=== PATIENT | female | born 1970 | race Caucasian/White ===

== ENCOUNTER 2018-06-18 01:37 | Outpatient (CLI) | payer OTHER, SELFPAY ==
--- NOTE | 2018-06-18 08:41 | DI.MRI_ITS ---
SYMPTOM/DIAGNOSIS: LT SHOULDER PAIN, WEAKNESS, SPRAIN, S43.92XD, LIMITED RANGE OF MOTION LEFT SHOULDER MRI: Routine noncontrast examination was performed. Comparison is made with 01/27/17. There is no evidence of a tendon tear. The rotator cuff muscles show normal signal and size. No significant muscular fatty atrophy is identified. The glenoid labrum is grossly unremarkable on this noncontrast examination. There are again seen post surgical changes with resection of the distal clavicle. Marrow signal is within normal limits. No evidence of an occult fracture or avascular necrosis. The glenohumeral articular cartilage appears well maintained. There is no significant joint effusion present. No soft tissue mass or focal fluid collection is appreciated. The ligaments appear grossly unremarkable. IMPRESSION: No acute abnormality. Post surgical changes seen at the acromioclavicular joint.
== END 2018-06-18 01:57 ==
PROVIDERS: PCP Nurse Practitioner Family; Visit Provider Student in an Organized Health Care Education/Training Program
DX: S43.92XD Sprain of unspecified parts of left shoulder girdle, subsequent encounter (principal); Z98.890 Other specified postprocedural states
CPT/HCPCS: 73221

== ENCOUNTER 2018-06-23 14:11 | Outpatient (CLI) | payer OTHER, SELFPAY ==
--- NOTE | 2018-06-23 14:08 | DI.RAD_ITS ---
SYMPTOMS/DIAGNOSIS: F/U LEFT SHOULDER PAIN LEFT SHOULDER: The bony structures are normally mineralized as visualized. The glenohumeral joint appears intact. Postsurgical changes with resection of the distal left clavicle are demonstrated. A tiny area of calcification is noted in the soft tissues adjacent to the greater tuberosity, raising the possibility of peritendinitis calcarea. Other than this finding, there has been no appreciable interval change when compared with images dating back to 12/15/16.
== END 2018-06-23 14:31 ==
PROVIDERS: PCP Nurse Practitioner Family; Visit Provider Student in an Organized Health Care Education/Training Program
DX: M25.512 Pain in left shoulder (principal); Z98.890 Other specified postprocedural states
CPT/HCPCS: 73030

== ENCOUNTER 2018-07-01 00:27 | Outpatient (CLI) | payer OTHER, SELFPAY ==
--- NOTE | 2018-07-01 10:50 | DI.RAD_ITS ---
SYMPTOMS/DIAGNOSIS: LT SHOULDER INJECTION, BICEPS TENDINITIS LT SHOULDER, M75.22, M75.112, INCOMPLETE ROTATOR CUFF TEAR OR RUPTURE C-ARM FLUOROSCOPY: Fluoroscopy Time: 14.7 sec, 1.20 mGy. C-arm fluoroscopy was utilized by Dr. Nava during left shoulder injection. Hardcopy shows intra-articular injury of the left glenohumeral joint.
[2018-07-01] MEDS: Omnipaque 300 MG/ML 10 ML BTL IJ (11:22)
[2018-07-01] MEDS: methylPREDNISolone ACETATE 80 MG/ML VIAL IM (11:23)
[2018-07-01] MEDS: Bupivacaine 0.5% Pres-Free 10 ML VIAL 5 ML IJ (11:26)
--- NOTE | 2018-07-01 12:44 | W.PROCNOTE ---
Date of service: 07/01/18 Time of Service: 12:44 Procedure Note Date of procedure: 07/01/18 Procedure: Left Shoulder Injection Surgeon/Proceduralist/Physician: Rosendo Nava Procedure Indications: Miriam has had persistent pain of the LEFT shoulder. Noninvasive measures have been tried. MRI showed an articular sided supraspinatus tear. To serve as both diagnostic and therapeutic, an injection under fluoroscopy was recommended. I had discussed the risks of the procedure and the patient elected to proceed. Procedure Description: Miriam was greeted in the flouroscopy room. The correct side was identified and the consent was reviewed with the patient and signed. The patient was then placed in the supine position on the fluoroscopy table. The LEFT shoulder was then prepped with Chloraprep. The anterior injection starting point was identiifed by bony landmarks and fluoroscopy. The skin and soft tissue in the tract of the injection was anesthetized with 1% Lidocaine. A spinal needle was then inserted deep into the shoulder joint at the level of the recess between the glenoid and superior humeral head. A small amount of Omnipaque solution was injected to confirm intraarticular placement. Once confirmed, the shoulder was injected with 4cc of 0.5% Bupivicaine and 80mg of Depo-Medrol. A bandaid was placed on the injection site. The patient tolerated the procedure well and noted improvement in pre-injection pain.
== END 2018-07-01 00:47 ==
PROVIDERS: PCP Nurse Practitioner Family; Visit Provider Student in an Organized Health Care Education/Training Program
DX: M25.512 Pain in left shoulder (principal); M75.22 Bicipital tendinitis, left shoulder; M75.112 Incomplete rotator cuff tear or rupture of left shoulder, not specified as traumatic
CPT/HCPCS: 20610; 77002; J1040

== ENCOUNTER 2018-11-08 22:03 | Emergency (ER) | payer OTHER, SELFPAY ==
[2018-11-08 22:08] VITALS: BP 155/79; PULSE 76; RESP 16; TEMP 36.8; O2SAT 98
--- NOTE | 2018-11-08 22:19 | ED.GENADUL_ITS ---
Discharge Plan Disposition Patient Disposition: HOME Condition: Improving Discharge Details Chief Complaint: Orthopedic Clinical Impression: Sprain of right shoulder girdle Primary Care Provider: Clair Espino ED Provider: Parrish Pierson Home Meds and New Rx's Prescriptions: Continued ibuprofen 600 mg tablet 600 mg PO TID PRN (Reason: pain) Qty: 90 RF: 3 acetaminophen 500 MG tablet 1,000 mg PO TID PRN PRNQty: 100 RF: 3 Discharge Instructions Instructions: Shoulder Pain (ED), Shoulder Sprain (ED) Additional Instructions: Please call the orthopedic office for a follow-up appointment with Dr. Nava, the office number as you know is [phone]. Sling as needed for comfort. Continue to apply ice to reduce discomfort. Co ntinue both Tylenol and ibuprofen as needed for pain. Return if develop numbness, tingling, worsening pain or any other acute concern. Stand Alone Forms: Work Release Medical Decision Making 48-year-old female with known left partial rotator cuff injury for which she is had extensive orthopedic evaluation. 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 She separately developed discomfort but continued to work. Tonight she has superior right shoulder pain as constant and worse with attempts at abduction. Denies other injury. Consistent with musculotedinous injury. Must consider rotator cuff injury, exclude underlying fracture or effusion and patient referred for XR. X-ray does not reveal malalignment or fracture. Discussed with her management of musculotendinous injury including sling, rest, NSAIDs. She has a well- established relationship with Dr. Nava and may follow-up with him in clinic for reevaluation. HPI General Mode of arrival: ambulatory . Date/Time Provider Initiated Documentation: 11/08/18 22:04 . Limitations to Documentation: no limitations . Information obtained by: patient . History of Present Illness 48 year old F presents to the emergency department with the chief complaint of She has right shoulder discomfort, described as moderate, Quality is described as dull, and is localized to the right and upper extremity. Patient reports no radiation. Patient started experiencing this hour(s) and it has been constant. Rest improves symptom(s), Movement worsens symptoms . Patient notes no other symptoms.; denies weakness. Patient did receive the following treatments prior to arrival, none Related Data Home Medications Medication Instructions Recorded Confirmed acetaminophen 1,000 mg PO TID PRN PRN #100 tab 03/26/17 11/08/18 ibuprofen 600 mg tablet 600 mg PO TID PRN #90 tab 11/03/18 11/08/18 Previous Rx's Medication Instructions Recorded acetaminophen 1,000 mg PO TID PRN PRN #100 tab 03/26/17 ibuprofen 600 mg tablet 600 mg PO TID PRN #90 tab 11/03/18 Allergies Allergy/AdvReac Type Severity Reaction Status Date / Time bee venom protein (honey bee) Allergy Severe Anaphylaxsi Verified 11/08/18 22:10 s Penicillins Allergy Severe Anaphylaxsi Verified 11/08/18 22:10 s codeine [Codeine] AdvReac Severe Visual Verified 11/08/18 22:10 Disturbances General Stated Complaint: Orthopedic CHARLY: 3 Review of Systems Review of Systems No numbness or tingling. Denies other injury. [facility] Surgical History Arthroplasty of knee section Ligation of fallopian tube Open Carpal Tunnel release Family History Grandfather Diabetes Heart disease Grandmother Diabetes Heart disease Social History Smoking/Tobacco Use Status: Current every day Alcohol Intake: current Alcohol Intake frequency: a few times a month Drug use: Never Do you feel safe in your relationship?: Yes Exam Narrative Exam Narrative: GEN: awake, alert, oriented 3. Pleasant, well groomed, interactive. HEAD: Normocephalic, atraumatic ENT: Mucous membranes moist, oropharynx unremarkable, External ear exam unremarkable EYES: PERRL, EOMI NECK: Full ROM, no DILMA, no menigismus EXT: 2+ radial pulse bilateral upper extremity. No pain with internal/external rotation. No pain with flexion or extension of the elbow. Pain with abduction of the arm at the shoulder. She is able to hold the arm straight out against gravity but not against resistance. With empty can test she is unable to hold arm against gravity. Neuro: Grossly normal neurologic exam, conversant, interactive. Psych: Speech fluent, thoughts congruent, affect normal Course Vital Signs Temperature 36.8 C 11/08/18 22:08 Pulse 76 11/08/18 22:08 Respiratory Rate 16 11/08/18 22:08 Blood Pressure 155/79 H 11/08/18 22:08 Pulse Oximetry 98 11/08/18 22:08 Temperature 36.8 C 11/08/18 22:08 Temperature Source Tympanic 11/08/18 22:08 Pulse 76 11/08/18 22:08 Respiratory Rate 16 11/08/18 22:08 Respiratory Effort Non-Labored 11/08/18 22:14 Blood Pressure 155/79 H 11/08/18 22:08 Pulse Oximetry 98 11/08/18 22:08 Pain Level 9 11/08/18 22:08
--- NOTE | 2018-11-08 22:45 | DI.RAD_ITS ---
SYMPTOM/DIAGNOSIS: PAIN AFTER FORCED DEVIATION RIGHT SHOULDER: 11/08 Five views were obtained. There are mild hypertrophic degenerative changes of acromioclavicular joint and to a lesser degree the glenohumeral joint. Small calcific or ossific radiodensities seen associated with the region of the infraspinatus tendon near the greater tuberosity of the humerus and the possibility of calcific peritendinitis is raised. No other significant findings.
--- NOTE | 2018-11-08 23:11 | DI.[facility]_ITS ---
EXAM: XR Right Shoulder EXAM DATE/TIME: 11/08/2018 10:30 PM CLINICAL HISTORY: 48 years old, female; Pain; Shoulder; Right; Patient HX: Injury while lifting heavy box; Additional info: Limited rom, pain upper shoulder TECHNIQUE: Imaging protocol: XR Right shoulder. Views: 2 or more views. COMPARISON: CR XR shoulder LT complete 2+V 06/23/2018 2:16 PM FINDINGS: Bones/joints: No fracture or subluxation.There are mild degenerative changes of the acromioclavicular joint. Soft tissues: 34 mm radiopacity projects in soft tissues above greater tuberosity IMPRESSION: 1. No fracture or subluxation. 2. Minimal degenerative changes of acromioclavicular joint. 3. Soft tissue radiopacity in the greater tuberosity could represent loose body, calcific tendinitis or calcific bursitis. Dictated and Authenticated by: Castillo Contreras MD. Ordering:AYDEE Senior MD
== END 2018-11-08 23:02 | disposition home or self-care (01) ==
PROVIDERS: Emergency Provider Emergency Medicine; PCP Nurse Practitioner Family
DX: S43.81XA Sprain of other specified parts of right shoulder girdle, initial encounter (principal); X50.9XXA Other and unspecified overexertion or strenuous movements or postures, initial encounter; Y99.0 Civilian activity done for income or pay
CPT/HCPCS: 99283; 73030; 99284; L3650

== ENCOUNTER → 2020-07-30 08:33 | Outpatient (CLI) | payer OTHER, SELFPAY ==
--- NOTE | 2020-07-30 | DI.RAD_ITS ---
Exam(s) XR HAND RT COMPLETE EXAM: XR HAND RT COMPLETE CLINICAL HISTORY: WRIST JOINT PAIN, M25.531. TECHNIQUE: 2D digital imaging was performed. COMPARISON: No exams were available for comparison FINDINGS: There is no evidence of fracture nor dislocation. No osseous lesions. No radiopaque foreign body. Bone density appears normal. IMPRESSION: DATA REPOSITORY: RADIATION DOSE DELIVERED:
--- NOTE | 2020-07-30 | DI.RAD_ITS ---
Exam(s) XR WRIST RT COMPLETE EXAM: XR WRIST RT COMPLETE CLINICAL HISTORY: RT WRIST JOINT PAIN, M25.531. TECHNIQUE: 2D digital imaging was performed. COMPARISON: No exams were available for comparison FINDINGS: There is no evidence of fracture nor dislocation. No significant ulnar variance. Bone density normal. No osseous lesions. IMPRESSION: DATA REPOSITORY: RADIATION DOSE DELIVERED:
== END ==
PROVIDERS: PCP Nurse Practitioner Family; Visit Provider Nurse Practitioner Family
DX: M25.531 Pain in right wrist (principal)
CPT/HCPCS: 73110; 73130

== ENCOUNTER 2024-03-28 15:49 | Outpatient (CLI) | payer MEDICAID, SELFPAY ==
--- NOTE | 2024-03-28 14:05 | DI.RAD_ITS ---
Exam(s) XR WRIST LT COMP NAVICULAR EXAM: XR WRIST LT COMP NAVICULAR CLINICAL HISTORY: L wrist injury. TECHNIQUE: 2D digital imaging was performed of the left wrist. Five images were obtained. Scaphoid , PA, oblique and lateral views were obtained. COMPARISON: CR XR WRIST 3 VIEW LEFT from 11/13/2023 FINDINGS: BONES: No acute fracture is present. No bony destructive lesion is seen. JOINTS: The carpal bones are normally aligned. SOFT TISSUE: Normal. IMPRESSION: Unremarkable radiographs of the left wrist. DATA REPOSITORY: RADIATION DOSE DELIVERED:
== END 2024-03-28 15:50 | disposition home or self-care (01) ==
LOC: DIORS 15:49
PROVIDERS: PCP Nurse Practitioner Family; Visit Provider Physician Assistant
DX: S69.92XA Unspecified injury of left wrist, hand and finger(s), initial encounter (principal); X58.XXXA Exposure to other specified factors, initial encounter
CPT/HCPCS: 73110

== ENCOUNTER 2024-09-01 07:02 | Emergency (ER) | payer BC, SELFPAY ==
[2024-09-01 07:11] VITALS: BP 152/81; PULSE 56; RESP 16; TEMP 36.5; O2SAT 98
--- NOTE | 2024-09-01 07:15 | DI.RAD_ITS ---
Exam(s) XR WRIST LT COMPLETE EXAM: XR WRIST LT COMPLETE CLINICAL HISTORY: posterior wrist pain. TECHNIQUE: 2D digital imaging was performed. COMPARISON: No exams were available for comparison FINDINGS: 3 views No evidence of fracture or dislocation nor significant ulnar variance. Scaphoid and scapholunate distance are normal. Bone density normal. No osseous lesions. IMPRESSION: No acute osseous findings in the wrist. DATA REPOSITORY: RADIATION DOSE DELIVERED:
--- NOTE | 2024-09-01 07:24 | W.ED.GENAD ---
Discharge Plan Disposition Patient Disposition: Home Condition: Stable Discharge Details Clinical Impression: Left wrist sprain Primary Care Provider: Clair Espino ED Provider: Yuri Bustamante Home Meds and New Rx's Prescriptions: Continued ibuprofen 600 mg tablet 600 mg PO TID PRN (Reason: pain) Qty: 90 3RF lisinopril 10 mg tablet 10 mg PO DAILY lutein 6 mg capsule 6 mg PO DAILY Rx Instructions: give with meal/snack meclizine 25 mg tablet 25 mg PO DAILY PRN metoprolol succinate 100 mg tablet extended release 24 hr 100 mg PO DAILY acetaminophen 500 MG tablet 1,000 mg PO TID PRN PRNQty: 100 3RF Discharge Instructions Additional Instructions: Your x-ray did not show any concerning findings at this time. If not improving follow-up with orthopedics. If you feel significantly more ill or have severe worsening pain return to the emergency department for reevaluation. HPI General Mode of arrival: ambulatory. Date/Time Provider Initiated Documentation: 09/01/24 07:17. Limitations to Documentation: no limitations. Information obtained by: patient. History of Present Illness 54 year old F presents to the emergency department with the chief complaint of posterior left wrist pain, described as moderate, Quality is described as aching, and is localized to the left and upper extremity. Patient reports no radiation. Patient started experiencing this day(s) (1) and it has been constant. Rest improves symptom(s), Movement worsens symptoms . Patient notes no other symptoms.. Patient did receive the following treatments prior to arrival, none Related Data Home Medications ?Medication ?Instructions ?Recorded ?Confirmed acetaminophen 500 mg tablet 1,000 mg (2 x 500 mg) PO TID PRN 03/26/17 09/01/24 PRN #100 tabs ibuprofen 600 mg tablet 600 mg PO TID PRN pain #90 tabs 11/03/18 09/01/24 lisinopril 10 mg tablet 10 mg PO DAILY 03/03/24 09/01/24 lutein 6 mg capsule 6 mg PO DAILY 03/03/24 09/01/24 meclizine 25 mg tablet 25 mg PO DAILY PRN 03/03/24 09/01/24 metoprolol succinate 100 mg 100 mg PO DAILY 03/03/24 09/01/24 tablet,extended release 24 hr Previous Rx's ?Medication ?Instructions ?Recorded acetaminophen 500 mg tablet 1,000 mg (2 x 500 mg) PO TID PRN 03/26/17 PRN #100 tabs ibuprofen 600 mg tablet 600 mg PO TID PRN pain #90 tabs 11/03/18 Allergies Allergy/AdvReac Type Severity Reaction Status Date / Time bee venom protein (honey bee) Allergy Severe Anaphylaxsi Verified 09/01/24 07:16 s Penicillins Allergy Severe Anaphylaxsi Verified 09/01/24 07:16 s latex Allergy Unknown Verified 09/01/24 07:16 codeine (Codeine) AdvReac Severe Visual Verified 09/01/24 07:16 Disturbances General Stated Complaint: Orthopedic CHARLY: 3 Review of Systems All systems reviewed & are unremarkable except as noted in HPI and below Constitutional Constitutional: Denies chills and Denies fever(s) Musculoskeletal Musculoskeletal: Reports arthralgias Exam Const General: no acute distress Orientation: alert [facility] Head: normal to inspection Ears: external ears normal General nose exam: external nose normal Mouth: moist mucous membranes Eyes General: appearance normal, both eyes and all related structures Neck Neck: normal visual inspection Resp Effort & Inspection: normal respiratory effort and able to speak in complete sentences Cardio Rate: regular rate Skin General skin exam: no rashes or lesions noted Neuro General: patient alert and patient oriented x3 Extrem General: full ROM and capillary refill normal Psych Mental Status: mental status grossly normal Course Vital Signs Vital signs: Vital Signs Temperature 36.5 C 09/01/24 07:11 Pulse 56 L 09/01/24 07:11 Respiratory Rate 16 09/01/24 07:11 Blood Pressure 152/81 H 09/01/24 07:11 Pulse Oximetry 98 09/01/24 07:11 Temperature 36.5 C 09/01/24 07:11 Temperature Source Oral 09/01/24 07:11 Pulse 56 L 09/01/24 07:11 Respiratory Rate 16 09/01/24 07:11 Blood Pressure 152/81 H 09/01/24 07:11 Blood Pressure Position Sitting 09/01/24 07:11 Pulse Oximetry 98 09/01/24 07:11 Oxygen Delivery Method Room Air 09/01/24 07:11 Oxygen Flow Rate 0 09/01/24 07:11 Pain Level 10 09/01/24 07:11 Medical Decision Making 54-year-old female comes in with left wrist pain. She has been having issues with the left wrist for some time and sees orthopedics for this. She wears a brace as needed. She said yesterday she was working in she was carrying a box which began the fall so she tried to catch her left arm injuring her left wrist. She did not fall or sustain other injuries. She has pain to the posterior left wrist. She does have full range of motion of the wrist and less pain with movement. She has intact sensation and hand and normal pulses and cap refill. There is no snuffbox tenderness. I suspect recurrent sprain but will obtain x-rays to exclude fracture/dislocation X-ray on my read and radiology read shows no acute findings. Patient is stable. She will follow-up with orthopedics if not improving and return precautions given Differential Diagnosis Differential Diagnosis: sprain, strain Medical Records Medical records reviewed: Yes I reviewed the patient's medical records. [facility] All Active Problems (Updated 09/01/24 @ 08:30 by Yuri Bustamante MD) Left wrist sprain (Acute) Left wrist sprain (Acute) Sprain of left scapholunate ligament (Acute) Right wrist sprain (Acute) DRUJ (distal radioulnar joint) sprain (Acute) Sprain of right acromioclavicular joint (Acute) Sprain of unspecified parts of left shoulder girdle, subsequent encounter (Acute 12/31/16) Incomplete tear of left rotator cuff (Acute 07/16/16) Biceps tendinitis of left shoulder (Acute 07/16/16) Surgical History Ligation of fallopian tube section Open Carpal Tunnel release bilateral Arthroplasty of knee Family History Grandfather Diabetes Heart disease Grandmother Diabetes Heart disease Social History Smoking/Tobacco Use Status: Current every day Smoking risk assessment performed?: Yes Alcohol Intake: current Alcohol Intake frequency: a few times a month Drug use: Never Housing: house Do you feel safe in your relationship?: Yes
[2024-09-01 08:20] VITALS: BP 121/76; PULSE 57; RESP 18; O2SAT 99
--- NOTE | 2024-09-01 09:00 | DI.VRAD_ITS ---
PROCEDURE INFORMATION: Exam: XR Left Wrist Exam date and time: 09/01/2024 7:37 AM Age: 54 years old Clinical indication: Left; Posterior wrist pain TECHNIQUE: Imaging protocol: Radiologic exam of the left wrist. Views: 3 or more views. COMPARISON: MR WRIST LEFT WO CONTRAST 12/25/2023 6:47 AM FINDINGS: Bones/joints: Radial ulnar joint normal. Carpus is normal. Metacarpals normal. Visualized portions of the phalanges normal. No triquetral fracture. Soft tissues: Pronator quadratus/soft tissues about this region are normal. IMPRESSION: Normal wrist. Dictated and Authenticated by: Jacoby Perze MD. Orderin Dianna Welch MD
== END 2024-09-01 08:41 | disposition home or self-care (01) ==
PROVIDERS: Emergency Provider Emergency Medicine; PCP Nurse Practitioner Family
DX: S63.502A Unspecified sprain of left wrist, initial encounter (principal); X58.XXXA Exposure to other specified factors, initial encounter
CPT/HCPCS: 99283 ×2; 73110

== ENCOUNTER 2024-10-04 18:27 | Emergency (ER) | payer BC, SELFPAY ==
[2024-10-04 18:28] VITALS: BP 135/69; PULSE 73; RESP 20; TEMP 36; O2SAT 96
--- NOTE | 2024-10-04 18:30 | DI.RAD_ITS ---
Exam(s) XR FOOT RT COMPLETE EXAM: XR FOOT RT COMPLETE CLINICAL HISTORY: pain near 4th toe. TECHNIQUE: 2D digital imaging was performed of the right foot. Three images were obtained. AP, oblique and lateral views were obtained. COMPARISON: No exams were available for comparison FINDINGS: BONES: No definite acute fracture is identified. The preliminary report discussed is a curvilinear lucency on the oblique view overlying the proximal phalanx of the 4th toe. It appears to extend beyond the proximal portion of the proximal phalanx and may reflect overlying shadow from the 5th toe. No bony destructive lesion is seen. JOINTS: No dislocation present. SOFT TISSUE: Normal. IMPRESSION: 1. No definite acute fracture or dislocation. 2. Probable curvilinear artifact on the oblique view stemming from the overlapping shadow of the 5th toe. 3. A follow-up examination with isolation of the 4th toe is recommended. 4. The preliminary [facility] report was reviewed. DATA REPOSITORY: RADIATION DOSE DELIVERED:
--- NOTE | 2024-10-04 18:44 | ED.GENADUL_ITS ---
Discharge Plan Disposition Patient Disposition: Home Condition: Stable Discharge Details Clinical Impression: Closed fracture of fourth toe of right foot Primary Care Provider: Clair Espino ED Provider: Yuri Bustamante Home Meds and New Rx's Prescriptions: Continued ibuprofen 600 mg tablet 600 mg PO TID PRN (Reason: pain) Qty: 90 3RF lisinopril 10 mg tablet 10 mg PO DAILY lutein 6 mg capsule 6 mg PO DAILY Rx Instructions: give with meal/snack metoprolol succinate 100 mg tablet extended release 24 hr 100 mg PO DAILY acetaminophen 500 MG tablet 1,000 mg PO TID PRN PRNQty: 100 3RF Discharge Instructions Additional Instructions: You have a nondisplaced fracture in your fourth toe. This will likely heal without any intervention. If not improving within a week follow-up with your primary care provider. If you feel more ill or have severe worsening pain return to the emergency department for reevaluation. Stand Alone Forms: Work Release HPI General Mode of arrival: ambulatory . Date/Time Provider Initiated Documentation: 10/04/24 18:32 . Limitations to Documentation: no limitations . Information obtained by: patient . History of Present Illness 54 year old F presents to the emergency department with the chief complaint of right 4th toe pain, described as moderate, Quality is described as aching, and is localized to the right and lower extremity. Patient reports no radiation. Patient started experiencing this hour(s) (3) and it has been constant. No relieving factors improve symptom(s), No exacerbating factors reported . P atient notes no other symptoms.. Patient did receive the following treatments prior to arrival, none Related Data Home Medications ?Medication ?Instructions ?Recorded ?Confirmed acetaminophen 500 mg tablet 1,000 mg (2 x 500 mg) PO T ID PRN 03/26/17 10/04/24 PRN #100 tabs ibuprofen 600 mg tablet 600 mg PO TID PRN pain #90 t abs 11/03/18 10/04/24 lisinopril 10 mg tablet 10 mg PO DAILY 03/03/2409/20 lutein 6 mg capsule 6 mg PO DAILY 03/03/2410/04 metoprolol succinate 100 mg 100 mg PO DAILY 03/03/24 0 10/04/24 tablet,extended release 24 hr Previous Rx's ?Medication ?Instructions ?Recorded acetaminophen 500 mg tablet 1,000 mg (2 x 500 mg) PO T ID PRN 03/26/17 PRN #100 tabs ibuprofen 600 mg tablet 600 mg PO TID PRN pain #90 t abs 11/03/18 Allergies Allergy/AdvReac Type Severity Reaction Status Date / Time bee venom protein (honey bee) Allergy Severe Anaphylaxsi Verified 10/04/24 18:35 s Penicillins Allergy Severe Anaphylaxsi Verified 10/04/24 18:35 s latex Allergy Unknown Verified 10/04/24 18:35 codeine (Codeine) AdvReac Severe Visual Verified 10/04/24 18:35 Disturbances General Stated Complaint: Orthopedic CHARLY: 4 Review of Systems All systems reviewed & are unremarkable except as noted in HPI and below Constitutional Constitutional: Denies chills, Denies fever(s) and Denies weakness Cardiovascular Cardiovascular: Denies chest pain and Denies dyspnea Respiratory Respiratory: Denies cough and Denies dyspnea Gastrointestinal Gastrointestinal: Denies vomiting Neurologic Neurologic: Denies weakness Exam Const General: no acute distress Orientation: alert HENMT Head: normal to inspection Ears: external ears normal General nose exam: external nose normal Mouth: moist mucous membranes Eyes General: appearance normal, both eyes and all related structures Neck Neck: normal visual inspection Resp Effort & Inspection: normal respiratory effort and able to speak in complete sentences Cardio Rate: regular rate Skin General skin exam: no rashes or lesions noted Neuro General: patient alert and patient oriented x3 Extrem General: normal to inspection, full ROM and capillary refill normal Psych Mental Status: mental status grossly normal Course Vital Signs Vital signs: Vital Signs Temperature 36.0 C L 10/04/24 18:28 Pulse 73 10/04/24 18:28 Respiratory Rate 20 10/04/24 18:28 Blood Pressure 135/69 10/04/24 18:28 Pulse Oximetry 96 10/04/24 18:28 Temperature 36.0 C L 10/04/24 18:28 Temperature Source Oral 10/04/24 18:28 Pulse 73 10/04/24 18:28 Respiratory Rate 20 10/04/24 18:28 Blood Pressure 135/69 10/04/24 18:28 Blood Pressure Position Sitting 10/04/24 18:28 Pulse Oximetry 96 10/04/24 18:28 Oxygen Delivery Method Room Air 10/04/24 18:28 Oxygen Flow Rate 0 10/04/24 18:28 Pain Level 8 10/04/24 18:33 Medical Decision Making 54-year-old female comes in with right foot pain. She states that her 2 dogs were zooming around and one of them stepped on her right foot near the fourth toe. She did not fall or sustain other injuries. She says that its progre ssively getting worse over the last few hours so came here for evaluation. She has no obvious deformity of the foot or toes. She has full range of motion of the ankle and toes with intact sensation and pulses. She has no metatarsal tenderness. She has tenderness just proximal to the right fourth toe and in the fourth toe. I suspect sprain versus contusion, will obtain an x-ray to evaluate for possible fracture Patient stable, has a lucency at the base of the fourth toe which is likely a nondisplaced fracture. Discussed results with her and offered to orthopedic or podiatry referral which she declines which I feel is reasonable as this is likely can heal without any intervention. She already has hard soled shoes. She will follow-up with her PCP if not improving within a week and return precautions given Differential Diagnosis Differential Diagnosis: Fracture, contusion, sprain PFSH All Active Problems (Updated 10/04/24 @ 20:44 by Yuri Bustamante MD) Closed fracture of fourth toe of right foot (Acute) Left wrist sprain (Acute) Sprain of left scapholunate ligament (Acute) Right wrist sprain (Acute) DRUJ (distal radioulnar joint) sprain (Acute) Sprain of right acromioclavicular joint (Acute) Sprain of unspecified parts of left shoulder girdle, subsequent encounter (Acute 12/31/16) Incomplete tear of left rotator cuff (Acute 07/16/16) Biceps tendinitis of left shoulder (Acute 07/16/16) Surgical History Ligation of fallopian tube section Open Carpal Tunnel release bilateral Arthroplasty of knee Family History Grandfather Diabetes Heart disease Grandmother Diabetes Heart disease Social History Smoking/Tobacco Use Status: Current every day Tobacco Type: cigarettes Years smoked: 38 Smoking risk assessment performed?: Yes Alcohol Intake: current Alcohol Intake frequency: a few times a month Drug use: Never Housing: house Do you feel safe in your relationship?: Yes
--- NOTE | 2024-10-04 20:33 | DI.VRAD_ITS ---
PROCEDURE INFORMATION: Exam: XR Right Foot Exam date and time: 10/04/2024 7:06 PM Age: 54 years old Clinical indication: Toes; Right; 4th toe pain TECHNIQUE: Imaging protocol: Radiologic exam of the right foot. Views: 3 or more views. COMPARISON: No relevant prior studies available. FINDINGS: Bones/joints: Curvilinear lucency in the proximal phalanx of the 4th toe may represent nondisplaced fracture. Seen best on the oblique image. Soft tissues: Soft tissue swelling of the toe. IMPRESSION: Curvilinear lucency in the proximal phalanx of the 4th toe may represent nondisplaced fracture. Seen best on the oblique image. Dictated and Authenticated by: Danyel Sawyer MD. Orderin Dianna Welch MD
== END 2024-10-04 21:12 | disposition home or self-care (01) ==
PROVIDERS: Emergency Provider Emergency Medicine; PCP Nurse Practitioner Family
DX: S92.591A Other fracture of right lesser toe(s), initial encounter for closed fracture (principal); F17.210 Nicotine dependence, cigarettes, uncomplicated; W54.1XXA Struck by dog, initial encounter; Y93.89 Activity, other specified; Y92.018 Other place in single-family (private) house as the place of occurrence of the external cause
CPT/HCPCS: 99283; 73630